=== PATIENT | female | born 1990 | race African-American/Black ===

== ENCOUNTER 2019-01-17 22:23 | Emergency (ER) | payer MEDICAID ==
[~2019-01-17] VITALS: Ht 157.5 cm; Wt 69.4 kg
[~2019-01-17 22:23] MED LIST: FLONASE ALLERG9.9 ML NS; NKM; PROMETHAZINE-D118 ML ORAL
--- NOTE | 2019-01-17 22:39 | Emergency Room Report ---
History of Present Illness General Chief Complaint: Pain Source: Patient Present Illness HPI Is a 28-year-old female without any past medical history. She presents with left upper quadrant pain. This pain been ongoing for over a year. This occurred ever since her and delivery. Pain is to the left upper quadrant chest by the costophrenic angle area. Worse with inspiration. Pain is mild and catching in nature. Worse with movement. She came in today because they got worse in the last few days. More persistent. No nausea no vomiting. No fever. Pain is 5 out of 10. Aching in nature. No diarrhea. No urinary complaint. Allergies: Coded Allergies: SULFAMETHOXAZOLE (Verified Allergy, Unknown, 11/22/18) TRIMETHOPRIM (Verified Allergy, Unknown, 11/22/18) Uncoded Allergies: PENICILLIN (Allergy, Unknown, 11/22/18) Patient History Past Medical History: see triage record, old chart reviewed Past Surgical History: none Pertinent Family History: none Social History: Denies: smoking Last Menstrual Period: 01/11/19 Now: No Immunizations: other Reviewed Nursing Documentation: PMH: Agreed; PSxH: Agreed Nursing Documentation-PMH Past Medical History: No History, Except For Review of Systems Eye: Denies: eye pain, blurred vision ENT: Denies: ear pain, nose congestion, throat swelling Respiratory: Denies: cough, shortness of breath Cardiovascular: Denies: chest pain, palpitations Gastrointestinal: Reports: abdominal pain; Denies: diarrhea, nausea, vomiting Musculoskeletal: Denies: back pain, joint pain Skin: Denies: rash Neurological: Denies: headache, numbness Endocrine: Denies: increased thirst, increased urine Hematologic/Lymphatic: Denies: easy bruising All Other Systems: negative except mentioned in HPI Physical Exam Vital Signs Date Time Temp Pulse Resp B/P (MAP) Pulse Ox O2 Delivery O2 Flow Rate FiO2 01/17/19 22:25 98.4 88 16 106/66 (79) 96 Room Air Vitals normal Sp02 EP Interpretation: reviewed, normal General Appearance: well appearing, no apparent distress, alert Head: normocephalic, atraumatic Eyes: bilateral eye PERRL, bilateral eye EOMI ENT: hearing grossly normal, normal pharynx Neck: full range of motion, supple, no meningismus Respiratory: chest non-tender, lungs clear, normal breath sounds Cardiovascular #1: regular rate, rhythm, no murmur Gastrointestinal: normal bowel sounds, no mass, no organomegaly, no bruit, non- distended, tenderness - Mild pain over the inferior rib the left upper quadrant area Musculoskeletal: back normal, gait/station normal, normal range of motion Psychiatric: mood/affect normal Medical Decision Making Diagnostic Impression: Primary Impression: Abdominal pain Qualified Codes: R10.12 - Left upper quadrant pain ER Course Patient presents with abdominal pain/rib pain. No evidence of acute abdomen. No evidence of infection. Will discharge home. CT/MRI/US Diagnostic Results CT/MRI/US Diagnostic Results : Imaging Test Ordered: CT abdomen pelvis Impression No acute process per radiologist Last Vital Signs Date Time Temp Pulse Resp B/P (MAP) Pulse Ox O2 Delivery O2 Flow Rate FiO2 01/17/19 22:25 98.4 88 16 106/66 (79) 96 Room Air Status: improved Disposition: HOME, SELF-CARE Condition: Stable Scripts Ibuprofen* (MOTRIN*) 600 Mg Tablet 600 MG ORAL THREE TIMES A DAY, #30 TAB 0 Refills Prov: Ned Marks MD 01/18/19 Referrals: NON PHYSICIAN (PCP) Additional Instructions: Follow-up with your doctor in 7 days. Return if symptoms worsen. Ned Marks MD Jan 17, 2019 22:39
[2019-01-17 22:45] VITALS: BP 106/66
--- NOTE | 2019-01-17 22:45 | NUR ---
ED Nurse Note: pt walked in c/o left side lower chest pain, pt reports it hurts on palpation, denies any recent injuries nor fall, denies any cardiac problems. no obvious deformity nor contusion nor wound noted, noted mild tenderness on left side, will cont monitor.
[2019-01-17 23:00] LABS: APPEARANCE,URINE CLEAR; BILIRUBIN, URINE NEGATIVE (NEGATIVE); COLOR,URINE PALE YELLOW; GLUCOSE, URINE (UA) NEGATIVE (NEGATIVE); KETONES,URINE NEGATIVE (NEGATIVE); LEUKOCYTE ESTERASE ,URINE NEGATIVE (NEGATIVE); NITRITE,URINE NEGATIVE (NEGATIVE); PH,URINE 6 (4.5-8.0); PROTEIN,URINE NEGATIVE (NEGATIVE); UROBILINOGEN,URINE NORMAL MG/DL (0.0-1.0)
--- NOTE | 2019-01-17 23:56 | Diagnostic Imaging Report ---
Indication: Abdominal pain, pain under left breast for 2 days Technique: Spiral acquisitions obtained through the abdomen and pelvis. No oral contrast utilized, per emergency room physician request No IV contrast utilized, per referring physician request.. Multiplanar reconstructions were generated. Total dose length product 673.79 mGycm. CTDIvol(s) 13.68 mGy. Dose reduction achieved using automated exposure control Comparison: None Findings: The appendix is normal. There is no evidence of diverticulosis or diverticulitis. No small bowel distention. No free or loculated intraperitoneal gas or fluid is evident. The distal esophagus, stomach, duodenum are unremarkable. Lack of IV contrast limits assessment of the solid organs. Tiny punctate calcification projects within or adjacent to the gallbladder lumen. The liver, bile ducts, pancreas, spleen, adrenals, kidneys are all unremarkable. No retroperitoneal or mesenteric mass or adenopathy. No pelvic mass or adenopathy. Uterus and ovaries are unremarkable except that the uterus is retroverted. The included lung bases are clear. The bones are unremarkable Impression: Possible tiny gallstone Otherwise essentially unremarkable exam This agrees with the preliminary interpretation provided overnight by [facility]erad[facility] service. The CT scanner at [facility] is accredited by the [employer] and the scans are performed using protocols designed to limit radiation exposure to as low as reasonably achievable to attain images of sufficient resolution adequate for diagnostic evaluation.
[2019-01-18] MEDS ORDERED: IBUPROFEN600 MG ORAL
[2019-01-18 00:08] VITALS: BP 110/57
--- NOTE | 2019-01-18 00:08 | NUR ---
ED Nurse Note: pt cleared to be d/c per ERMD, pt discharge and aftercare instruction provided w/ prescription, pt education done via discussion and handout, pt advised to follow up with pcp or return to ed if changes in condition, pt verbalized understanding and agrees with plan, vss, ambulatory w/ steady gait, left w/ all belongings.
== END 2019-01-18 00:08 | disposition home or self-care (01) ==
LOC: EMR 22:35
DX: R10.12 Left upper quadrant pain (principal); Z88.2 Allergy status to sulfonamides; Z88.0 Allergy status to penicillin
CPT/HCPCS: 74176; 81003; 81025; 99284

== ENCOUNTER 2019-02-23 18:49 | Emergency (ER) | payer MEDICAID ==
[~2019-02-23] VITALS: Ht 157.5 cm; Wt 71.7 kg
[~2019-02-23 18:49] MED LIST changes: +IBUPROFEN600 MG ORAL
[2019-02-23 20:00] VITALS: BP 102/72
--- NOTE | 2019-02-23 20:00 | NUR ---
ER Nurse Note: Pt walked in c/o dizziness with no LOC or trauma to head. Pt also complained of LT arm pain with numbness and tingling. Pt a&ox4, VSS, no signs of distress. Pt stated she has hx of anxiety. Will continue to montior.
[2019-02-23 20:18] LABS: BASOPHILS % (AUTO) 1.6 % (0.0-2.0); EOSINOPHILS % (AUTO) 0.7 % (0.0-3.0); HEMATOCRIT 40.3 % (37.0-47.0); HEMOGLOBIN 13.2 G/DL (12.0-16.0); LYMPHOCYTES % (AUTO) 36.6 % (20.0-45.0); MEAN CORPUSCULAR VOLUME 89 FL (80-99); MONOCYTES % (AUTO) 5.3 % (1.0-10.0); NEUTROPHILS % (AUTO) 55.7 % (45.0-75.0); PLATELET COUNT 250 K/UL (150-450); RED BLOOD COUNT 4.54 M/UL (4.20-5.40); RED CELL DISTRIBUTION WIDTH 11.9 % (11.6-14.8); WHITE BLOOD COUNT 4.6 K/UL (4.8-10.8)
[2019-02-23 20:21] LABS: APPEARANCE,URINE CLEAR; BILIRUBIN, URINE NEGATIVE (NEGATIVE); COLOR,URINE PALE YELLOW; GLUCOSE, URINE (UA) NEGATIVE (NEGATIVE); KETONES,URINE NEGATIVE (NEGATIVE); LEUKOCYTE ESTERASE ,URINE NEGATIVE (NEGATIVE); NITRITE,URINE NEGATIVE (NEGATIVE); PH,URINE 7 (4.5-8.0); PROTEIN,URINE NEGATIVE (NEGATIVE); UROBILINOGEN,URINE NORMAL MG/DL (0.0-1.0)
[2019-02-23 20:21] LABS: ANION GAP 11 mmol/L (5-15); BLOOD UREA NITROGEN 10 mg/dL (7-18); CALCIUM 9.9 MG/DL (8.5-10.1); CARBON DIOXIDE 25 MMOL/L (21-32); CHLORIDE 104 MMOL/L (98-107); CREATININE 0.8 MG/DL (0.55-1.30); POTASSIUM 3.9 MMOL/L (3.5-5.1); SODIUM 140 MMOL/L (136-145)
[2019-02-23 20:26] LABS: ALANINE AMINOTRANSFERASE 16 U/L (12-78); ALBUMIN/GLOBULIN RATIO 0.7 (1.0-2.7); ALKALINE PHOSPHATASE 40 U/L (46-116); ASPARTATE AMINO TRANSFERASE 19 U/L (15-37); BILIRUBIN,TOTAL 0.3 MG/DL (0.2-1.0)
--- NOTE | 2019-02-23 20:42 | Emergency Room Report ---
History of Present Illness General Chief Complaint: General Complaint Source: Medical Record Present Illness HPI 28-year-old female with history of HIV positive currently controlled here complaining of left shoulder pain x1 week without any fall or injury. Patient reports that he often holds her baby with that side. Patient reports that the pain sometimes radiates to her left fingers. Complains of occasional tingling however denies numbness. Patient denies chest pain palpitation. However is concerned about her chest as she is HIV positive wants to know that her heart is okay. Complains of few days of dizziness upon standing sitting. Has a stable vital signs. Reports that she keeps hydrated. Her last visit with her infectious disease doctor was last week and reports that her viral load within normal limits. Complains of occasional palpitation however reports increased anxiety. She is a tobacco smoker however denies smoking weed and drinking alcohol or any other drug use. Denies syncope, headache, nausea vomiting. Denies urinary symptoms. Reports that she is regular and having her menstruations and her last menstrual period was 2 weeks ago. Allergies: Coded Allergies: PENICILLINS (Verified Allergy, Unknown, 02/23/19) SULFAMETHOXAZOLE (Verified Allergy, Unknown, 11/22/18) TRIMETHOPRIM (Verified Allergy, Unknown, 11/22/18) Patient History Past Medical History: see triage record Past Surgical History: unable to obtain Pertinent Family History: none Social History: Reports: smoking Now: No Immunizations: UTD Reviewed Nursing Documentation: PMH: Agreed; PSxH: Agreed Nursing Documentation-PMH Past Medical History: No History, Except For Review of Systems All Other Systems: negative except mentioned in HPI Physical Exam Vital Signs Date Time Temp Pulse Resp B/P (MAP) Pulse Ox O2 Delivery O2 Flow Rate FiO2 02/23/19 18:59 98.4 88 16 102/72 (82) 96 Room Air Sp02 EP Interpretation: reviewed, normal General Appearance: no apparent distress, alert, GCS 15, non-toxic Head: normocephalic, atraumatic Eyes: bilateral eye normal inspection, bilateral eye PERRL ENT: hearing grossly normal, normal pharynx, no angioedema, normal voice Neck: full range of motion, supple/symm/no masses Respiratory: chest non-tender, lungs clear, normal breath sounds, speaking full sentences Cardiovascular #1: regular rate, rhythm, no edema, no JVD, no murmur Cardiovascular #2: 2+ radial (R), 2+ radial (L) Gastrointestinal: normal bowel sounds, non tender, soft, non-distended, no guarding, no rebound Rectal: deferred Genitourinary: normal inspection, no CVA tenderness Musculoskeletal: back normal, gait/station normal, normal range of motion, non- tender, other - No impingement sign noted Neurologic: alert, oriented x3, responsive, motor strength/tone normal, sensory intact, speech normal Psychiatric: judgement/insight normal, memory normal, mood/affect normal, no suicidal/homicidal ideation Skin: no rash Lymphatic: no adenopathy Medical Decision Making PA Attestation All my diagnosis and treatment plans were reviewed ad discussed with my supervising physician Dr. Elkins Diagnostic Impression: Primary Impression: Tendonitis of shoulder, left Additional Impression: Dizziness on standing ER Course 28-year-old female with history of HIV positive currently controlled here complaining of left shoulder pain x1 week without any fall or injury. Patient reports that he often holds her baby with that side. Patient reports that the pain sometimes radiates to her left fingers. Complains of occasional tingling however denies numbness. Patient denies chest pain palpitation. However is concerned about her chest as she is HIV positive wants to know that her heart is okay. Complains of few days of dizziness upon standing sitting. Has a stable vital signs. Reports that she keeps hydrated. Her last visit with her infectious disease doctor was last week and reports that her viral load within normal limits. Complains of occasional palpitation however reports increased anxiety. She is a tobacco smoker however denies smoking weed and drinking alcohol or any other drug use. Denies syncope, headache, nausea vomiting. Denies urinary symptoms. Reports that she is regular and having her menstruations and her last menstrual period was 2 weeks ago. Ddx considered but are not limited to: Dizziness due to alcohol intoxication, dizziness unspecified, dizziness due to head trauma, dizziness secondary to cardiac reasons, benign positional vertigo, shoulder sprain versus strain versus tendinitis Vital signs: are WNL, pt. is afebrile H&PE are most consistent with: Left shoulder tendinitis, dizziness on standing ORDERS: CBC, CMP, UA, tox screen, urine test, chest x-ray, EKG, Robaxin, ibuprofen, meclizine ER intervention: None DISCHARGE: At this time pt. is stable for d/c to home. Will provide printed patient care instructions, and any necessary prescriptions. Care plan and follow up instructions have been discussed with the patient prior to discharge. Patient to follow-up with her primary care provider to further investigate reasons of dizziness at this time no cardiac disorder noted no pleural effusion or pneumonia or upper respiratory infection noted no electrolyte abnormality no infection noted in blood. Patient also has stable vital signs upon discharge. No x-ray of the left shoulder needed as patient did not fall or injure. Patient agrees with the above treatment. Return to emergency room worsening symptoms. EKG Diagnostic Results Rate: normal Rhythm: NSR ST Segments: no acute changes Other Impression No acute ST changes Chest X-Ray Diagnostic Results Chest X-Ray Diagnostic Results : Chest X-Ray Ordered: Yes # of Views/Limited/Complete: 1 View Indication: Other EP Interpretation: Yes PA Xray: Interpretation reviewed, by supervising MD, and agrees with findings. Interpretation: no consolidation, no effusion, no pneumothorax Impression: No acute disease Electronically Signed by: Raimundo Wetzel PA-C Last Vital Signs Date Time Temp Pulse Resp B/P (MAP) Pulse Ox O2 Delivery O2 Flow Rate FiO2 02/23/19 18:59 98.4 88 16 102/72 (82) 96 Room Air Disposition: HOME, SELF-CARE Condition: Stable Scripts Ibuprofen* (MOTRIN*) 600 Mg Tablet 600 MG ORAL Q8H PRN for For Pain, #30 TAB 0 Refills Prov: Raimundo Parekh 02/23/19 Diclofenac Sodium (VOLTAREN) 100 Gm Gel..gram. 2 GM TP TID, #100 GM Prov: Raimundo Parekh 02/23/19 Meclizine Hcl* (MECLIZINE*) 25 Mg Tablet 25 MG ORAL THREE TIMES A DAY, #15 TAB Prov: Raimundo Parekh 02/23/19 Patient Instructions: Bicipital Tendonitis, Dizziness, [id number] Additional Instructions: Take medication as directed follow-up with your primary care provider if worsening symptoms return to the emergency room Raimundo Parekh Feb 23, 2019 20:42
[2019-02-23] MEDS ORDERED: MECLIZINE HCL25 MG ORAL (20:45)
[2019-02-23] MEDS ORDERED: VOLTAREN100 G1 TP (20:45)
[2019-02-23] MEDS ORDERED: IBUPROFEN600 MG ORAL (20:45)
[2019-02-23 21:00] VITALS: BP 110/74
--- NOTE | 2019-02-23 21:00 | NUR ---
ER Nurse Note: Pt seen, treated, medically cleared for discharge by ERMD. Discharge instuctions and prescriptions given with repeat verbalization by pt. Emphasized to follow up with primay care provider; take whole course of medication. Explained each medication. All orders completed per ERMD orders. Pt a&ox4, VSS, no signs of distress. ID band removed. IV removed; site clean and bandaged. All questions answered per pt's questions. Pt left with all belongings, left with own transportation.
--- NOTE | 2019-02-24 13:38 | Diagnostic Imaging Report ---
Indication: Chest pain Comparison: None A single view chest radiograph was obtained. Findings: Cardiomediastinal appearance is within normal limits for age. The lungs are clear. Pulmonary vascularity is appropriate. The diaphragmatic contour is smooth and costophrenic angles are sharp. No pleural effusions are identified. The bones are unremarkable. Impression: No acute findings
== END 2019-02-23 21:00 | disposition home or self-care (01) ==
LOC: EMR 20:50
DX: M75.92 Shoulder lesion, unspecified, left shoulder (principal); R42 Dizziness and giddiness; F17.200 Nicotine dependence, unspecified, uncomplicated; Z88.0 Allergy status to penicillin; Z88.1 Allergy status to other antibiotic agents; Z88.2 Allergy status to sulfonamides
CPT/HCPCS: 36415; 71045; 80053; 81001; 81025; 85025; 93005; 99283